=== PATIENT | female | born 1990 | race African-American/Black ===

== ENCOUNTER 2016-11-24 13:14 | Emergency (ER) | payer BC, OTHER ==
[~2016-11-24] VITALS: Ht 167.6 cm; Wt 97.5 kg
[~2016-11-24 13:14] MED LIST: BLOOD PRESSURE MED; DULERA 200 MCG/13 GM; IBUPROFEN 800800 MG PO; IRON236 MG PO; NORCO 5-325 TA1 EACH PO; PREDNISONE 20 M20 M1 PO; PREDNISONE 20 M20 MG PO; PREDNISONE50 MG PO; PROAIR HFA8.5 GM IH; PROAIR HFA8.5 GM INH
[2016-11-24 15:54] VITALS: BP 118/74
== END 2016-11-24 15:55 | disposition home or self-care (01) ==
LOC: ER 13:14
DX: T18.9XXA Foreign body of alimentary tract, part unspecified, initial encounter (principal); J45.909 Unspecified asthma, uncomplicated; X58.XXXA Exposure to other specified factors, initial encounter; Y93.89 Activity, other specified; Y92.89 Other specified places as the place of occurrence of the external cause; Y99.8 Other external cause status